=== PATIENT | male | born 1940 | race Caucasian/White ===

== ENCOUNTER 2018-03-19 10:15 | Inpatient (IN) ==
[2018-03-19] MEDS ORDERED: fentaNYL Citrate Inj 100 MCG/2 ML Ampul ONE (10:21)
[2018-03-19 10:39] LABS: Baso # (Auto) 0.1 th/mm3 (0.0-0.2); Baso % (Auto) 0.9 % (0.0-2.0); Eos # (Auto) 0.4 th/mm3 (0.0-0.4); Eos % (Auto) 2.3 % (0.0-4.0); Hematocrit 37.7 % (39.0-51.0); Hemoglobin 12.1 gm/dL (13.0-17.0); Lymph # (Auto) 9.9 th/mm3 (1.0-4.8); Lymph % (Auto) 63.4 % (9.0-44.0); Mean Corpuscular HGB Conc 32.1 % (32.0-36.0); Mean Corpuscular Hemoglobin 29.8 pg (27.0-34.0); Mean Corpuscular Volume 92.7 fL (80.0-100.0); Mean Platelet Volume 8.2 fL (7.0-11.0); Mono # (Auto) 1.7 th/mm3 (0.0-0.9); Mono % (Auto) 11.1 % (0.0-8.0); Neut # (Auto) 3.5 th/mm3 (1.8-7.7); Neut % (Auto) 22.3 % (16.0-70.0); Platelet Count 171 th/mm3 (150-450); Red Blood Count 4.07 mil/mm3 (4.50-5.90); Red Cell Distribution Width 16.4 % (11.6-17.2); White Blood Count 15.7 th/mm3 (4.0-11.0)
[2018-03-19 10:49] LABS: Activated Partial Thrombo Time 21.5 sec (24.3-30.1); INR 1.1 Ratio; Prothrombin Time 11.2 sec (9.8-11.6)
[2018-03-19 11:45] LABS: Lymphocytes 49 % (9-44); Metamyelocytes 1 % (0-1); Monocytes 18 % (0-8)
[2018-03-19 11:47] LABS: Platelet Estimate Normal (Normal); Platelet Morphology Normal (Normal)
[2018-03-19] MEDS ORDERED: Etomidate Inj 40 MG/20 ML Vial IV.PUSH ONE (14:48)
[2018-03-19] MEDS ORDERED: Etomidate Inj 20 MG/10 ML Ampul IV.PUSH ONE (14:50)
[2018-03-19] MEDS: Pantoprazole Inj 40 MG Vial IV.PUSH SCH (15:37)
--- NOTE | 2018-03-19 16:04 | ED ---
HPI General Chief Complaint: Fall Stated Complaint: Trauma Alert History of Present Illness HPI Narrative: This is a reported 77-year-old with a history of coronary artery disease, presents today with complaints of pain in the right hip and lower back after falling off a RV. The patient was working on his RV when he fell off and landed on the concrete. Patient denies any loss of consciousness. Patient reports pain in his right hip. He also reports pain in his lower lumbar area. The patient denies any numbness or tingling to his lower extremities bilaterally. There is no neck pain. There is no head pain. There is no upper back pain. Related Data Home Medications Medication Instructions Recorded Confirmed acetaminophen [Tylenol] 325 mg PO Q4H PRN 03/19/18 03/19/18 aspirin 81 mg PO DAILY 03/19/18 03/19/18 atorvastatin 40 mg PO DAILY 03/19/18 03/19/18 clopidogrel [Plavix] 75 mg PO DAILY 03/19/18 03/19/18 diltiazem HCl 120 mg PO DAILY 03/19/18 03/19/18 ezetimibe [Zetia] 5 mg PO DAILY 03/19/18 03/19/18 fluticasone [Flonase Allergy 2 spray INTRANASAL DAILY PRN 03/19/18 03/19/18 Relief] lisinopril 10 mg PO DAILY 03/19/18 03/19/18 pantoprazole 40 mg PO DAILY 03/19/18 03/19/18 tamsulosin 0.4 mg PO DAILY 03/19/18 03/19/18 Allergies Allergy/AdvReac Type Severity Reaction Status Date / Time No Allergy Information Allergy Verified 03/19/18 11:08 Available Review of Systems ROS: all other systems reviewed are negative Constitutional Reports system reviewed and no additional complaints, except as docu Eyes Reports system reviewed and no additional complaints, except as docu ENT Denies dizziness and Denies facial pain Cardiovascular Reports system reviewed and no additional complaints, except as docu and Denies dyspnea Respiratory Denies chest congestion, Denies cough and Denies dyspnea Gastrointestinal Denies abdominal pain, Denies nausea and Denies vomiting Genitourinary Reports system reviewed and no additional complaints, except as docu Musculoskeletal Reports back pain (Right lateral paraspinous pain in the L4-L5 distribution.) and Reports other (Right hip pain) Neurologic Denies confusion, Denies syncope and Denies headache(s) [facility] Medical History Medical History HTN (hypertension) (Acute) Surgical History Surgical History H/O aortic valve replacement (Acute) History of back surgery (Acute) History of hip surgery (Acute) Stented coronary artery (Acute) Social History Social History Substance History: No History of Abuse Second Hand Smoke Exposure: No Smoking Status: Former smoker How Often Do You Have a Drink Containing Alcohol: Never Recent Travel in [facility] within the Last 8 Weeks: No Recent Out of Country Travel within the Last 8 Weeks: No Immunization History Tetanus Immunization: Unable to Assess Hx Influenza Vaccine This Season: No Exam Narrative Exam Narrative: GENERAL: Well-developed well-nourished male in C-spine backboard immobilization. SKIN: Focused skin assessment warm/dry. HEAD: Atraumatic. Normocephalic. EYES: No scleral icterus. No injection or drainage. ENT: No nasal bleeding or discharge. Mucous membranes pink and moist. NECK: Trachea midline. In c-collar mobilization. CARDIOVASCULAR: Regular rate and rhythm. No murmur appreciated. RESPIRATORY: No accessory muscle use. Clear to auscultation. Breath sounds equal bilaterally. GASTROINTESTINAL: Abdomen soft, non-tender, nondistended. Hepatic and splenic margins not palpable. MUSCULOSKELETAL: Right lower extremity with external rotation and flexion at the knee. Patient had tenderness to palpation over his right hip at the proximal hip distribution. Patient had palpable dorsalis pedis pulses. Cap refill is less than 3 seconds. He is able to wiggle his toes without difficulty. NEUROLOGICAL: Awake and alert. No obvious cranial nerve deficits. Motor grossly within normal limits. Normal speech. Course Initial Documented Vital Signs Pulse Oximetry 97 03/19/18 10:32 Last Documented Vital Signs Temperature 97.8 F 03/19/18 14:32 Pulse Rate 71 03/19/18 15:00 Respiratory Rate 21 03/19/18 15:00 Blood Pressure 154/67 H 03/19/18 15:00 Pulse Oximetry 100 03/19/18 15:00 Medical Decision Making [facility] Narrative Medical decision making narrative: This is a reported 77-year-old male presents after falling off a RV roof. Patient has a comminuted proximal right humerus fracture. Patient also has a superior endplate fracture on L1. The patient was placed in Arango's traction. Case was discussed with Dr. Almodovar, orthopedic surgeon on-call, who will refer the patient to Dr. Alejo Curtis. Case was discussed with the trauma surgeon, Dr. Sevilla who was present when the patient arrived. He will be admitted to the trauma service. Medical Screen Exam Complete: Yes Emergency Medical Condition: Yes Differential Diagnosis Differential Diagnosis: Hip fracture versus pelvic fracture versus intra- abdominal injury versus spinal fracture Lab Data Result diagrams: 03/19/18 10:25 Lab Results 03/19/18 03/19/18 03/19/18 Range/Units 10:25 10:25 10:25 WBC 15.7 H (4.0-11.0) th/mm3 RBC 4.07 L (4.50-5.90) mil/mm3 Hgb 12.1 L (13.0-17.0) gm/dL POC Hgb (Calc) 12.2 L (13.0-17.0) g/dL Hct 37.7 L (39.0-51.0) % POC Hct 36.0 L (39-51.0) % MCV 92.7 (80.0-100.0) fL MCH 29.8 (27.0-34.0) pg MCHC 32.1 (32.0-36.0) % RDW 16.4 (11.6-17.2) % Plt Count 171 (150-450) th/mm3 MPV 8.2 (7.0-11.0) fL Prelim Diff (Auto) Slide review pending Neut % (Auto) 22.3 (16.0-70.0) % Lymph % (Auto) 63.4 H (9.0-44.0) % [place] % (Auto) 11.1 H (0.0-8.0) % Eos % (Auto) 2.3 (0.0-4.0) % Baso % (Auto) 0.9 (0.0-2.0) % Neut # (Auto) 3.5 (1.8-7.7) th/mm3 Lymph # (Auto) 9.9 H (1.0-4.8) th/mm3 [place] # (Auto) 1.7 H (0.0-0.9) th/mm3 Eos # (Auto) 0.4 (0.0-0.4) th/mm3 Baso # (Auto) 0.1 (0.0-0.2) th/mm3 WBC Differential Manual diff final Seg Neuts % (Manual) 31 (16-70) % Lymphocytes % (Manual) 49 H (9-44) % Monocytes % (Manual) 18 H (0-8) % Basophils % (Manual) 1 (0-2) % Metamyelocytes % (Man) 1 (0-1) % Abs Neuts (Manual) 5.0 (1.8-7.7) th/mm3 Differential Comment . Platelet Estimate Normal (Normal) Platelet Morphology Normal (Normal) PT 11.2 (9.8-11.6) sec INR 1.1 Ratio APTT 21.5 L (24.3-30.1) sec POC Sodium 141 (137-144) mmol/L POC Potassium 4.2 (3.6-5.0) mmol/L POC Chloride 107 (102-111) mmol/L POC BUN 13 (5-21) mg/dL POC Creatinine 1.1 (0.6-1.3) mg/dL POC Glucose 119 H (68-110) mg/dL Blood Type Blood Type Recheck Antibody Screen 03/19/18 Range/Units 10:25 WBC (4.0-11.0) th/mm3 RBC (4.50-5.90) mil/mm3 Hgb (13.0-17.0) gm/dL POC Hgb (Calc) (13.0-17.0) g/dL Hct (39.0-51.0) % POC Hct (39-51.0) % MCV (80.0-100.0) fL MCH (27.0-34.0) pg MCHC (32.0-36.0) % RDW (11.6-17.2) % Plt Count (150-450) th/mm3 MPV (7.0-11.0) fL Prelim Diff (Auto) Neut % (Auto) (16.0-70.0) % Lymph % (Auto) (9.0-44.0) % [place] % (Auto) (0.0-8.0) % Eos % (Auto) (0.0-4.0) % Baso % (Auto) (0.0-2.0) % Neut # (Auto) (1.8-7.7) th/mm3 Lymph # (Auto) (1.0-4.8) th/mm3 [place] # (Auto) (0.0-0.9) th/mm3 Eos # (Auto) (0.0-0.4) th/mm3 Baso # (Auto) (0.0-0.2) th/mm3 WBC Differential Seg Neuts % (Manual) (16-70) % Lymphocytes % (Manual) (9-44) % Monocytes % (Manual) (0-8) % Basophils % (Manual) (0-2) % Metamyelocytes % (Man) (0-1) % Abs Neuts (Manual) (1.8-7.7) th/mm3 Differential Comment Platelet Estimate (Normal) Platelet Morphology (Normal) PT (9.8-11.6) sec INR Ratio APTT (24.3-30.1) sec POC Sodium (137-144) mmol/L POC Potassium (3.6-5.0) mmol/L POC Chloride (102-111) mmol/L POC BUN (5-21) mg/dL POC Creatinine (0.6-1.3) mg/dL POC Glucose (68-110) mg/dL Blood Type A Positive Blood Type Recheck Required Antibody Screen Negative Imaging Data Radiologist's impression: Hip X-Ray 03/19/18 00:00 CONCLUSION: Comminuted proximal femoral fracture with lateral angulation. Lumbar Spine CT 03/19/18 00:00 CONCLUSION: 1. Hairline fracture involving the superior endplate of L1 not significant displacement and no involvement of the posterior elements. Thoracic Spine CT 03/19/18 00:00 CONCLUSION: Hairline fracture of the L1 vertebral body. Previous vertebroplasty of T7. No evidence of acute fracture seen otherwise. Chest X-Ray 03/19/18 10:17 CONCLUSION: 1. Mild cardiomegaly. 2. No focal infiltrate or pulmonary vascular congestion. 3. No evidence of pneumothorax. Pelvis X-Ray 03/19/18 10:17 CONCLUSION: Comminuted fracture the proximal right femur. Abdomen/Pelvis CT 03/19/18 10:25 CONCLUSION: 1. Hairline fracture superior endplate of L1. No free fluid or solid organ injury is identified. 2. Comminuted fracture proximal right femur Cervical Spine CT 03/19/18 10:25 CONCLUSION: 1. No acute fracture or prevertebral soft tissue swelling. 2. Extensive cervical lymphadenopathy is noted bilaterally. Clinical correlation is recommended. 3. Diffuse cervical spondylosis. 4. Mild bilateral foraminal narrowing at C4-5, C5-6 and to a lesser extent at C3-4. Chest CT 03/19/18 10:25 CONCLUSION: 1. Hairline fracture superimposed of L1. Minimal atelectasis lung bases. Solid organs are unremarkable. Head CT 03/19/18 10:25 CONCLUSION: 1. No acute intracranial abnormality. 2. Mild periventricular and subcortical white matter small vessel ischemic changes bilaterally. . Discharge Plan Discharge Disposition Patient Disposition: 30 Still Patient Discharge Details Diagnosis: Closed fracture of right hip, Compression fracture of L1 lumbar vertebra, Fall Physicians Team ED Provider: Jamari Zeng Primary Care Provider: UNKNOWN, Attending Provider: Tio Campbell Other Providers: Yahir Morris ; Omar Fagan ; [employer] ; Tio Campbell ; Caron Giang ; Parish Reina ; Roslyn Blue ; Jud Valadez ; Ani Curtis ; Alberto Rodriguez ; Matthew Almodovar Discharge Interventions Interventions: ED Discharge Assessment Last Done: 03/19/18 16:54 Vital Signs Last Done: 03/19/18 16:55 Status ED Status: Left Department Discharge Information Discharge Date/Time: 03/19/18 16:55
[2018-03-19] MEDS: Morphine Inj 4 MG/ML Vial IV.PUSH PRN ×2 (18:06→21:23)
[2018-03-19] MEDS: ceFAZolin 2 GM Premix Inj 2 GM/50 ML PIGGYBACK IV.SIG SCH (21:48)
[2018-03-19] MEDS: Temazepam 15 MG Capsule PO PRN (23:04)
[2018-03-20] MEDS: Morphine Inj 4 MG/ML Vial IV.PUSH PRN ×2 (00:13→03:46)
[2018-03-20] MEDS ORDERED: Chlorhexidine Gluconate 2% 1 Pack (2 Cloths) TOPICAL ONE (03:27)
[2018-03-20] MEDS: ceFAZolin 2 GM Premix Inj 2 GM/50 ML PIGGYBACK IV.SIG SCH (03:46)
[2018-03-20] MEDS ORDERED: Sodium Chlor 0.9% Inj 500 ML IV.SIG SCH (04:00)
[2018-03-20 05:10] LABS: Baso # (Auto) 0.1 th/mm3 (0.0-0.2); Baso % (Auto) 0.6 % (0.0-2.0); Eos # (Auto) 0.1 th/mm3 (0.0-0.4); Eos % (Auto) 0.7 % (0.0-4.0); Hemoglobin 10.4 gm/dL (13.0-17.0); Lymph # (Auto) 11.4 th/mm3 (1.0-4.8); Lymph % (Auto) 60.7 % (9.0-44.0); Mean Corpuscular HGB Conc 32.5 % (32.0-36.0); Mean Corpuscular Volume 92.3 fL (80.0-100.0); Mono # (Auto) 2.1 th/mm3 (0.0-0.9); Mono % (Auto) 11.1 % (0.0-8.0); Neut # (Auto) 5.1 th/mm3 (1.8-7.7); Neut % (Auto) 26.9 % (16.0-70.0); Platelet Count 163 th/mm3 (150-450); Red Blood Count 3.47 mil/mm3 (4.50-5.90); Red Cell Distribution Width 16.4 % (11.6-17.2); White Blood Count 18.9 th/mm3 (4.0-11.0)
[2018-03-20 05:31] LABS: Calcium 8.2 mg/dL (8.5-10.1); Carbon Dioxide 23.9 meq/L (21.0-32.0); Potassium 4.5 meq/L (3.5-5.1)
[2018-03-20 08:18] LABS: Lymphocytes 58 % (9-44); Monocytes 10 % (0-8); Platelet Estimate Normal (Normal); Platelet Morphology Normal (Normal)
[2018-03-20] MEDS ORDERED: Bupivacaine/Epinephrine PF Inj 0.25% 10 ML Vial ONE (09:12)
[2018-03-20] MEDS ORDERED: Sodium Chlor 0.9% Inj 250 ML ONE (09:13)
[2018-03-20] MEDS ORDERED: Phenylephrine/NS 1000 MCG/10ML Syringe IV.PUSH ONE (09:30)
[2018-03-20] MEDS ORDERED: Lidocaine PF 1% Inj 5 ML Syringe OTHER ONE (09:30)
[2018-03-20] MEDS ORDERED: Glycopyrrolate Inj 1 MG/5 ML Syringe IV.PUSH ONE (09:30)
[2018-03-20] MEDS ORDERED: Neostigmine Inj 5 MG/5 ML Syringe IV.PUSH ONE (09:30)
[2018-03-20] MEDS ORDERED: Post-op Orders (for Pharmacy) OTHER STA (10:19)
[2018-03-20] MEDS ORDERED: fentaNYL Citrate Inj 100 MCG/2 ML Ampul ONE (10:49)
[2018-03-20] MEDS: dilTIAZem CD 120 MG Capsule PO SCH (12:02)
[2018-03-20] MEDS: Pantoprazole Inj 40 MG Vial IV.PUSH SCH (12:03)
[2018-03-20] MEDS: Lisinopril 10 MG Tablet PO SCH (12:03)
[2018-03-20] MEDS: Calcium/Vitamin D 250/125 MG Tablet PO SCH ×2 (14:45→17:45)
--- NOTE | 2018-03-20 17:15 | ECG ---
Date Performed: 03/20/2018 Time Performed: 05:59:20 PTAGE: 77 years EKG: Sinus rhythm with PAC(s) Left bundle branch block Abnormal ECG NO PREVIOUS TRACING DOCTOR: Martin Lester Interpretating Date/Time 03/20/2018 17:14:47
[2018-03-20] MEDS: Ezetimibe 10 MG Tablet PO SCH (20:35)
[2018-03-20] MEDS: Senna/Docusate Sodium 8.6/50 MG Tablet PO SCH (20:35)
[2018-03-21] MEDS: Temazepam 15 MG Capsule PO PRN (00:02)
[2018-03-21] MEDS: Calcium/Vitamin D 250/125 MG Tablet PO SCH ×3 (11:14→17:27)
[2018-03-21] MEDS: Senna/Docusate Sodium 8.6/50 MG Tablet PO SCH ×2 (11:15→20:40)
[2018-03-21] MEDS: dilTIAZem CD 120 MG Capsule PO SCH (11:15)
[2018-03-21] MEDS: Lisinopril 10 MG Tablet PO SCH (11:15)
[2018-03-21] MEDS: Enoxaparin Inj 40 MG/0.4 ML Syringe SQ SCH (11:16)
[2018-03-21] MEDS: Morphine Inj 4 MG/ML Vial IV.PUSH PRN (20:40)
[2018-03-21] MEDS: Ezetimibe 10 MG Tablet PO SCH (20:47)
[2018-03-22] MEDS: Morphine Inj 4 MG/ML Vial IV.PUSH PRN (04:08)
[2018-03-22] MEDS: Calcium/Vitamin D 250/125 MG Tablet PO SCH ×2 (10:14→14:48)
[2018-03-22] MEDS: Lisinopril 10 MG Tablet PO SCH (10:14)
[2018-03-22] MEDS: Enoxaparin Inj 40 MG/0.4 ML Syringe SQ SCH (10:15)
[2018-03-22] MEDS: dilTIAZem CD 120 MG Capsule PO SCH (10:15)
[2018-03-22] MEDS: Senna/Docusate Sodium 8.6/50 MG Tablet PO SCH (10:15)
== END 2018-03-22 18:13 ==
LOC: NEPI 10:15 → NEDA 11:57 → MERGE 11:57 → EDBD 11:57 → NEDA 16:55 → N06 17:00
PROVIDERS: ADMIT Surgery; ATTEND Surgery
PROC: ORIFHIP (2018-03-20 09:28)